=== PATIENT | female | born 1960 | race Caucasian/White ===

== ENCOUNTER 2018-08-11 21:28 | Inpatient (IN) | payer OTHER ==
[2018-08-11] MEDS ORDERED: Lidocaine 1% 20 ML MDV ONE (22:12)
[2018-08-11] MEDS ORDERED: Piperacillin/Tazobactam 3.375 GM VIAL ONE (22:14)
[2018-08-11] MEDS ORDERED: Lidocaine 1% PF 5 ML VIAL ONE (22:18)
[2018-08-11] MEDS ORDERED: Sodium Chloride 0.9% 100 ML ONE (22:19)
[2018-08-11 22:33] LABS: Eosinophils 2 % (0-10); Hemoglobin 12.1 g/dL (12.0-16.0); Lymphocytes 16 % (21-51); MDiff Complete? YES; Mean Corpuscular HGB CONC 33.3 g/dL (32.0-36.0); Mean Corpuscular Hemoglobin 29.7 pg (27.0-31.0); Mean Corpuscular Volume 89.1 fL (78.0-98.0); Mean Platelet Volume 7.7 fL (7.4-10.4); Monocytes 8 % (0-10); Neutrophil 70 % (42-75); Platelet Count 327 thou/uL (130-400); RBC Distribution Width 12.5 % (11.5-14.5); Reactive Lymphocytes 4 % (0-10); Red Blood Cell (RBC) Count 4.07 mill/uL (4.20-5.40)
[2018-08-11 22:34] LABS: Anion Gap 15 mmol/L (10-20); BUN (Urea Nitrogen) 16 mg/dL (9.8-20.1); Calc. Creatinine Clearance 0 mL/min (70-130); Calcium 9.7 mg/dL (7.8-10.44); Carbon Dioxide 21 mmol/L (22-29); Chloride 110 mmol/L (98-107); Estimated GFR-MDRD 65; Glucose 163 mg/dL (70-105); Potassium 3.6 mmol/L (3.5-5.1); Sodium 142 mmol/L (136-145)
[2018-08-11] MEDS ORDERED: Morphine 4 MG/ML VIAL ONE (22:44)
--- NOTE | 2018-08-11 23:11 | RAD ---
Exam: XR Forearm Rt 2 View STANDARD HISTORY: Right forearm pain after a dog bite. COMPARISON: None FINDINGS: There is subcutaneous edema about the forearm greater medially and dorsally. There are punctate focus of gas seen medial to the right elbow which could be related to wound from dogbite. No acute fracture, dislocation, or other acute osseous abnormality is identified. There is a corticated osseous density adjacent the ulnar styloid process which could be related to an accessory center of ossification versus a remote avulsion injury. IMPRESSION: 1. Subcutaneous edema about the forearm which could be related to cellulitis, but this would be a cli nical diagnosis. There is suggestion of a punctate focus of gas overlying the soft tissues medial to the right elbow which could be related to puncture wound from history of prior injury. Gas related to a gas-forming organism cannot be entirely excluded. 2. No acute osseous abnormality.
[2018-08-11] MEDS ORDERED: Adacel (T-DAP) 0.5 ML SYRINGE ONE (23:14)
[2018-08-12] MEDS ORDERED: diphenhydrAMINE 50 MG/ML VIAL ONE (00:21)
[2018-08-12] MEDS ORDERED: Piperacillin/Tazobactam 3.375 GM in Sodium Chloride 0.9% 100 ML IVPB SCH (06:00)
[2018-08-12] MEDS ORDERED: Acetaminophen 325 MG TAB PO PRN (10:59)
[2018-08-12] MEDS ORDERED: Ibuprofen 200 MG TAB PO PRN (11:00)
[2018-08-12] MEDS: Piperacillin/Tazobactam 3.375 GM in Sodium Chloride 0.9% 100 ML IVPB SCH ×3 (12:22→23:19)
[2018-08-12] MEDS: Vancomycin HCl 1 GM in Premix Bag 1 BAG IVPB SCH (17:12)
--- NOTE | 2018-08-12 18:02 | CON ---
DATE OF CONSULTATION: This is Howie Penaloza PA-C dictating a report for Faisal Appiah MD. HISTORY OF PRESENT ILLNESS: We were asked by [facility] hospitalist to see the patient. The patient this past Saturday was accidentally nipped in the right forearm elbow by her dog and did okay Saturday, she cleaned it out, but by , the arm had blown up and had quite a bit of erythema and edema. She saw her PCP, who put her on Augmentin. This did not work. She came in to the ER and had a lidocaine applied and did a small opening. She did receive a culture, but one cyst did not express much fluid and the patient was admitted to the hospital. Since being on vancomycin and Zosyn, the erythema, edema has gotten much better, but she still has quite a bit of pain and now has purulent discharge. The patient's pain has gotten better. No numbness or tingling in that right upper extremity and no fevers, chills, or any other symptoms. PAST MEDICAL HISTORY: Positive for pre-breast cancer, not proven and some rib fractures. Otherwise, she is fairly healthy. PAST SURGICAL HISTORY: Lumpectomy, hysterectomy, and bilateral Achilles repair. 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 No alcohol, nicotine, or drug products, whatsoever. ALLERGIES: SULFA. CURRENT MEDICATIONS: 1. Tamoxifen. 2. Fosamax. FAMILY HISTORY: For this visit is noncontributory. REVIEW OF SYSTEMS: Her only complaint right now is right elbow pain and swelling. Denies any chest pain or shortness of breath. No bowel or bladder issues. Rest of review of systems negative. PHYSICAL EXAMINATION: GENERAL: Well-nourished and well-developed female, alert, pleasant, no acute distress. Speech clear. Affect pleasant. Answers questions appropriately. Alert and oriented x3. HEENT: Normal exam. Face symmetric. Tongue midline. NECK: Supple. Trachea midline. EXTREMITIES: Upper extremities, left upper extremity IV in the antecubital space. Otherwise, moving left upper extremity well. Right upper extremity has some erythema, edema to her right forearm and elbow region that is definitely lessened by the ink outlined since she has gotten some IV antibiotics. She still has a little bit of purulent discharge seen. We were able to express a little bit of this on exam. The area is tender to palpation, but I felt no crepitus. Rest of upper extremity exam, strength, sensation, and pulses are equal. IMAGING STUDIES: X-rays showed some gas in the tissues. ASSESSMENT: Left forearm infection secondary to a dog bite. PLAN: I spoke with Dr. Appiah. Plan is to I and D washout at 8 o'clock this evening. She had a sandwich at 12 o'clock, so we have to wait 8 hours. I have explained the patient the nature of the surgery will be an incision and drainage of washout. She understands the surgery has been explained as does her mother and she is amenable to go forth with surgery. We will get her set up on the surgery schedule to get her consented. She is already on antibiotics. Her questions and concerns have been addressed. Job ID: [id number]
[2018-08-12] MEDS ORDERED: Fentanyl 100 MCG/2 ML VIAL ONE ×3 (19:51→22:14)
[2018-08-12] MEDS ORDERED: Sodium Chloride 0.9% 30 ML ONE ×2 (19:53→20:08)
[2018-08-12] MEDS ORDERED: Bupivacaine PF 0.5% 30 ML VIAL ONE (19:53)
[2018-08-12] MEDS ORDERED: Bacitracin Zinc Ointment 30 gm TUBE ONE (19:53)
[2018-08-12] MEDS ORDERED: Ondansetron PF 4 MG/2 ML Vial ONE (20:15)
[2018-08-12] MEDS ORDERED: Famotidine/PF 20 mg/2ml Vial ONE (20:15)
[2018-08-12] MEDS ORDERED: Scopolamine 1.5 mg/72 hour Patch ONE (20:17)
[2018-08-12] MEDS ORDERED: Promethazine HCl 25 MG/ML VIAL IM PRN (20:57)
[2018-08-12] MEDS ORDERED: Ondansetron HCl/PF 4 MG/2 ML Vial IVP PRN (20:57)
[2018-08-12] MEDS ORDERED: Promethazine HCl 25 MG/ML VIAL SLOW IVP PRN (20:57)
--- NOTE | 2018-08-12 23:09 | HP ---
CHIEF COMPLAINT: Right arm pain. HISTORY OF PRESENT ILLNESS: The patient is a very pleasant 57-year-old female with history of breast cancer, who presents to the hospital with complaints of right arm pain. The patient stated that her dog bit her on Saturday on her right forearm area. The patient stated that the dog was startled and according to her, her dog has been vaccinated. The patient stated that, however, a couple days later, she noticed some erythema around her right forearm, so she called her PCP, who called in Augmentin. The patient stated that she took 3-1/2 days of her antibiotics; however the erythema started to worsen, so she came into the ER for further evaluation. The patient denies any fevers or chills. She denies any nausea, vomiting, or diarrhea. The patient states that as I mentioned, the dog has been vaccinated and this is the 3rd time and the dog always does that when gets startled. PAST MEDICAL HISTORY: History of breast cancer, just it was precancerous. She is on tamoxifen. FAMILY HISTORY: Significant for breast cancer in mother and sister. SOCIAL HISTORY: She denies any alcohol use, drug use, or smoking history. She is a full code. Lives with her . PAST SURGICAL HISTORY: She has had a lumpectomy and she has had hysterectomy. REVIEW OF SYSTEMS: All negative except for the ones mentioned above in the HPI. ALLERGIES: SHE IS ALLERGIC TO SULFA. SHE GETS A RASH. MEDICATIONS: She is on tamoxifen and Excedrin at times. PHYSICAL EXAMINATION: VITAL SIGNS: Temperature of 99.1, heart rate of 119, 18, 148/88. GENERAL: She is awake, alert, and oriented x3. Does not appear in distress. CV: S1, S2 present. No murmurs, rubs, or gallops. LUNGS: Clear to auscultation. No rhonchi or wheezes noted. ABDOMEN: Soft and nontender. Bowel sounds are present x2. Extremities: Right arm, she does have some mild erythema to her right arm. She does have a puncture wound. Right radial pulse is palpable. She does have some mild erythema to her right arm. NEUROVASCULAR: No focal deficits noted. LABORATORY RESULTS: WBCs of 10.0, hemoglobin of 12.1, hematocrit of 36.5. Chemistry: Sodium of 142, potassium of 3.6, BUN of 16, creatinine 0.89. Lactic acid is 1.9. ASSESSMENT AND PLAN: The patient is a very pleasant 57-year-old female who presents to the hospital with complaints of right arm worsening swelling. 1. Cellulitis of the right arm secondary to dog bite. I will start the patient on Zosyn. She also received vancomycin in the ER. 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 I will hold off on the vancomycin. I will just start her on the Zosyn and continue to monitor. She did have a right forearm x-ray, which indicated subcutaneous edema on the forearm, also indicated some punctate focus of gas overlying the soft tissue medial to the right elbow. 2. History of breast cancer. I will continue her tamoxifen. 3. Deep venous thrombosis prophylaxis. We will put the patient on some sequential compression devices or Lovenox. Job ID: [id number]
[2018-08-12] MEDS: Morphine 4 MG/ML VIAL SLOW IVP PRN (23:11)
[2018-08-13] MEDS: Morphine 4 MG/ML VIAL SLOW IVP PRN (04:13)
[2018-08-13] MEDS: Vancomycin HCl 1 GM in Premix Bag 1 BAG IVPB SCH ×2 (06:10→18:00)
[2018-08-13] MEDS: Piperacillin/Tazobactam 3.375 GM in Sodium Chloride 0.9% 100 ML IVPB SCH ×3 (06:10→18:38)
[2018-08-13 07:45] LABS: #Lymphocytes 1.1 thou/uL (1.20-3.40); #Monocytes 0.1 thou/uL (0.11-0.59); %Basophils 0.3 % (0.0-1.0); %Eosinophils 0.1 % (0.0-10.0); %Lymphocytes 11.9 % (21.0-51.0); %Monocytes 1.4 % (0.0-10.0); %Neutrophils 86.3 % (42.0-75.0); Hemoglobin 11.7 g/dL (12.0-16.0); Mean Corpuscular HGB CONC 33.4 g/dL (32.0-36.0); Mean Corpuscular Hemoglobin 30.9 pg (27.0-31.0); Mean Corpuscular Volume 92.6 fL (78.0-98.0); Mean Platelet Volume 7.8 fL (7.4-10.4); Platelet Count 305 thou/uL (130-400); RBC Distribution Width 11.8 % (11.5-14.5); White Blood Cell (WBC) Count 9.3 thou/uL (4.8-10.8)
[2018-08-13 08:07] LABS: Anion Gap 15 mmol/L (10-20); BUN (Urea Nitrogen) 9 mg/dL (9.8-20.1); Calc. Creatinine Clearance 68 mL/min (70-130); Calcium 8.9 mg/dL (7.8-10.44); Carbon Dioxide 20 mmol/L (22-29); Chloride 107 mmol/L (98-107); Estimated GFR-MDRD 69; Glucose 150 mg/dL (70-105); Potassium 4.4 mmol/L (3.5-5.1); Sodium 138 mmol/L (136-145)
[2018-08-13] MEDS: HYDROcodone/Acetaminophen 7.5/325 mg Tablet PO PRN ×2 (08:32→13:13)
[2018-08-13] MEDS: Enoxaparin Sodium 40 MG/0.4 ML SYRINGE SC SCH (08:33)
--- NOTE | 2018-08-13 10:47 | OP ---
DATE OF PROCEDURE: 08/12/2018 PREOPERATIVE DIAGNOSIS: Left medial elbow abscess secondary to dog bite. POSTOPERATIVE DIAGNOSIS: Left medial elbow abscess secondary to dog bite. FINDINGS: Dog bite abscess with a finding of a 5 x 2 cm central fat, necrotic tissue with some purulence hard on the fat harboring itself under the fat. SPECIMEN SENT: Yes. BIOPSY: X2 of the lesion. PROCEDURE PERFORMED: 1. Incision and drainage of abscess. 2. Debridement of subcutaneous fat using the following techniques: a. Excisional technique. b. Instrumentation was tenotomy scissors, Adson and sugar tongs. COMPLICATIONS: There were no complications. ESTIMATED BLOOD LOSS: 15 mL. SPECIMEN SENT: Two cultures of the abscess cavity itself (fat and other material and then of the abscess fluid), 2 separate cultures. ANESTHESIA: General LMA technique by DB Santoro, [employer]. DESCRIPTION OF PROCEDURE: After successful general endotracheal, the limb was prepped and draped. Patient came to the operating room because of fluctuance, obvious subcutaneous purulence over almost an egg-shaped lesion. We exsanguinated the limb, inflated the tourniquet to 250 mmHg pressure and then made a curvilinear straight incision over the center of the mass. Since it was sewn on both sides, it was obviously emanating from the mass. The patient then had the incision carried through the skin and subcutaneous tissue, finished debridement as listed in description of procedure above and then had all infected fat removed, all denuded fat removed that could be visualized and then even packed this area once hemostasis was obtained with normal saline soaked gauze. The patient left the operating room with the wound open, fully debrided and have undergone a multiple Pulsavac sessions. Job ID: [id number]
--- NOTE | 2018-08-13 20:19 | PDOC.PN ---
- Subjective Encounter Start Date: 08/13/18 Encounter Start Time: 11:30 Subjective: pt up in bed feels much better today - Objective Resuscitation Status - Order Detail: 08/12/18 10:59 Resuscitation Status Routine Resuscitation Status: FULL: Full Resuscitation Vital Signs & Weight: Vital Signs (12 hours) Temp Pulse Resp BP BP Pulse Ox 08/13/18 17:00 97.9 F 89 16 108/71 92 L 08/13/18 16:00 97.9 F 95 16 108/71 94 L 08/13/18 13:18 90 16 94 L 08/13/18 12:13 98.2 F 106 H 82 H 106/70 91 L 08/13/18 08:30 92 L 08/13/18 08:29 98.1 F 90 16 103/65 92 L Weight Weight 130 lb 15.273 oz I&O: 08/12/18 08/13/18 08/14/18 06:59 06:59 06:59 Intake Total 982 320 8757 Balance 014 308 0959 Result Diagrams: 08/13/18 07:36 08/13/18 07:36 Phys Exam - Physical Examination Neck: no nodes, no JVD, supple, full ROM Respiratory: no wheezing, no rales, no rhonchi, wheezing present, clear to auscultation bilateral Cardiovascular: RRR, no significant murmur, no rub, gallop, irregular Gastrointestinal: soft, non-tender, no distention, positive bowel sounds Dx/Plan (1) Cellulitis Code(s): L03.90 - CELLULITIS, UNSPECIFIED Status: Acute (2) Dog bite Code(s): W54.0XXA - BITTEN BY DOG, INITIAL ENCOUNTER Status: Acute (3) Breast cancer Status: Acute - Plan will continue current abx, pt s/p I&D of right elbow -: cx pending. * . Review of Systems - Review of Systems Respiratory: negative: Cough, Dry, Shortness of Breath, Hemoptysis, SOB with Excertion, Pleuritic Pain, Sputum, Wheezing Cardiovascular: negative: chest pain, palpitations, orthopnea, paroxysmal nocturnal dyspnea, edema, light headedness, other Gastrointestinal: negative: Nausea, Vomiting, Abdominal Pain, Diarrhea, Constipation, Melena, Hematochezia, Other - Medications/Allergies Allergies/Adverse Reactions: Allergies Allergy/AdvReac Type Severity Reaction Status Date / Time Sulfa (Sulfonamide Allergy Verified 08/12/18 01:38 Antibiotics) Medications: Current Medications Acetaminophen (Tylenol) 650 mg PO Q4H PRN PRN Reason: Headache/Fever/Mild Pain (1-3) Hydrocodone Bitart/Acetaminophen ([place] 7.5/325) 1 tab PO Q4H PRN PRN Reason: Moderate Pain (4-6) Last Admin: 08/13/18 13:13 Dose: 1 tab Enoxaparin Sodium (Lovenox) 40 mg SC 0900 [facility] Last Admin: 08/13/18 08:33 Dose: 40 mg Piperacillin Sod/Tazobactam (Sod 3.375 gm/ Sodium Chloride) 100 mls @ 200 mls/ hr IVPB Q6HR [facility] Last Admin: 08/13/18 18:38 Dose: 100 mls Vancomycin HCl 1 gm/ Device 200 mls @ 200 mls/hr IVPB 0500,1700 [facility] Last Admin: 08/13/18 18:00 Dose: 200 mls Ibuprofen (Motrin) 200 mg PO Q8H PRN PRN Reason: Pain Last Admin: 08/12/18 12:22 Dose: 200 mg Miscellaneous Medication (Pharmacy To Dose) 1 each IVPB PRN PRN PRN Reason: Pharmacy to dose Morphine Sulfate (Morphine) 4 mg SLOW IVP Q3H PRN PRN Reason: Severe Pain (7-10) Last Admin: 08/13/18 04:13 Dose: 4 mg Sodium Chloride (Flush - Normal Saline) 10 ml IVF Q12HR [facility] Last Admin: 08/13/18 08:53 Dose: Not Given Sodium Chloride (Flush - Normal Saline) 10 ml IVF PRN PRN PRN Reason: Saline Flush Tamoxifen Citrate (Nolvadex) 20 mg PO DAILY [facility] Last Admin: 08/13/18 08:50 Dose: 20 mg
[2018-08-14] MEDS: Piperacillin/Tazobactam 3.375 GM in Sodium Chloride 0.9% 100 ML IVPB SCH ×3 (00:10→14:22)
[2018-08-14 04:30] LABS: Vancomycin, Trough 52.6 ug/mL
[2018-08-14] MEDS ORDERED: Vancomycin HCl 1 GM in Premix Bag 1 BAG IVPB SCH (04:45)
[2018-08-14] MEDS: Enoxaparin Sodium 40 MG/0.4 ML SYRINGE SC SCH (08:14)
[2018-08-14] MEDS ORDERED: Ondansetron PF 4 MG/2 ML Vial IVP PRN (08:50)
[2018-08-14] MEDS ORDERED: Ibuprofen 600 MG TAB PO SCH (09:00)
--- NOTE | 2018-08-14 11:34 | CON ---
DATE OF CONSULTATION: 08/13/2018 REASON FOR CONSULTATION: Dog bite. HISTORY OF PRESENT ILLNESS: A 57-year-old patient, who has a history of breast cancer, in remission after treatment on tamoxifen, who sustained a bite. The bite was provoked, it was her own dog, the dog is vaccinated and the dog is healthy right now. The bite was localized to the right upper extremity around the elbow and she developed worsening inflammatory changes, which failed Augmentin; therefore, she was admitted. She is feeling better after initiation of IV antimicrobial therapy. Dr. Appiah has completed a surgical debridement. The operative note was reviewed and there was debridement of subcutaneous fat, but no other major complications. No evidence of joint or bone involvement. She is feeling better. No headaches, visual symptoms, sore throat, odynophagia, or dysphagia. No cough or sputum production. No chest pain. No abdominal pain or diarrhea. No genitourinary symptoms. No neurological symptoms. PAST MEDICAL HISTORY: Breast cancer in remission, on tamoxifen. FAMILY HISTORY: Breast cancer in mother and sister. SOCIAL HISTORY: Does not drink. No alcoholic beverage use. No smoking. She is . PAST SURGICAL HISTORY: Lumpectomy and hysterectomy. ALLERGIES: SULFA DRUGS WITH RASH. CURRENT MEDICATIONS: 1. Tamoxifen. 2. [place]. 3. Lovenox. 4. Motrin. 5. Morphine. 6. Zosyn. 7. Vancomycin. PHYSICAL EXAMINATION: VITAL SIGNS: Essentially normal except for mild tachycardia. SKIN: Shows the wound site right around the oval area with a puncture wound from the bite surrounding erythema. I do not have photos from the surgical procedure. She has a peripheral IV access. No lymphadenopathy. HEENT: Noncontributory. NECK: Supple. No jugular vein distention. LUNGS: Clear to auscultation and percussion. HEART: S1 and S2, regular rate. No S3 or S4. ABDOMEN: Soft. Not distended or tender. No ascites. No bladder distention. EXTREMITIES: Lower extremities are normal. Cognitive functions intact. NEURO: Nonfocal. LABORATORY DATA: White cell count 10.0 and 9.3, hemoglobin normal, platelets normal, 86% neutrophils. Sodium 138, creatinine 0.85. Cultures are pending. Gram stain did not show any organisms. ASSESSMENT: Dog bite with inflammatory changes, mostly circumscribed to the soft tissues of the right upper extremity. The patient had surgical debridement. Await on cultures. The possible organisms include Pasteurella multocida, Staph aureus including MRSA, gram negatives, and streptococci. Continue current regimen for the time being. Hopefully, discharge on oral Augmentin depending on culture results. Job ID: [id number]
[2018-08-14 13:31] VITALS: BP 135/85; TEMP 99.3
[2018-08-14 15:11] LABS: Vancomycin, Trough 37.4 ug/mL
--- NOTE | 2018-08-15 18:39 | DIS ---
DATE OF ADMISSION: 08/12/2018 DATE OF DISCHARGE: 08/14/2018 DISCHARGE DIAGNOSES: 1. Cellulitis. 2. Dog bite. 3. History of breast cancer. HOSPITAL COURSE: The patient is a 57-year-old female, who initially presented to the hospital with significant erythema on her right forearm. Please refer to my H and P for further details. Apparently, the patient was bit by her dog. Initially, she cleansed it. However, the next day, she started to have more significant redness to her right arm, so she called in her PCP, who prescribed her some antibiotics. The patient stated that her arm continued to swell at this point. She came into the ER for further evaluation. She denied any fevers or any chills. The patient at this time was given IV antibiotics and also an x-ray was performed. The x-ray was a little concerning, especially since it had mentioned that the patient had some focus of gas overlying the soft tissue on the medial to the right elbow. At this time, Orthopedics was consulted and the patient underwent an I and D. Her cultures did grow back just a preliminary with gram-negative rods. The patient was also seen by Infectious Disease and I did consult with them before discharging the patient. The patient was discharged home. She was discharged home on Augmentin. I have specifically told the patient and the family that she will need to follow up with her primary especially since her cultures were preliminary and needed to be final to see if the antibiotics that we were giving her were sensitive to the organism that grew in the culture. She is going to follow up with her primary care. Also, while she was here, she did receive vancomycin and her trough was 58. At this time, a repeat one indicated 37. I also advised her about this. I will check her BMP next week on Saturday and also I have advised her to follow up with her primary in regard to this. PHYSICAL EXAMINATION: VITAL SIGNS: Temperature of 99.3, heart rate of 110, respiratory rate 18, oxygen saturation 97% on room air, and blood pressure 135/87. GENERAL: She is awake, alert, and oriented x3. Does not appear in distress. CARDIOVASCULAR: S1 and S2 present. No murmurs, rubs, or gallops. ABDOMEN: Soft and nontender. Bowel sounds are present x2. The patient is supposed to follow up with Orthopedic for closure of that wound and her number will be provided for her. MEDICATIONS: She is going to be on; 1. Augmentin one p.o. b.i.d. 2. Florastor 250 daily. 3. Alendronate 70 mg every 7 days. 4. Tamoxifen 20 mg daily. Job ID: [id number]
[2018-08-19] MEDS ORDERED: Alendronate Sodium 70 mg Tablet PO SCH (09:00)
== END 2018-08-14 17:29 | disposition home or self-care (01) | DRG 572 ==
LOC: SCSER 21:28 → 3SE 08-12 00:58 → T4-B 08-12 18:34
PROVIDERS: ADMIT Internal Medicine; ATTEND Internal Medicine
PROC: 0JBG0ZZ Excision of Right Lower Arm Subcutaneous Tissue and Fascia, Open Approach (ICD-10-PCS; principal; 2018-08-12)
DX: L02.413 Cutaneous abscess of right upper limb (principal); S51.051A Open bite, right elbow, initial encounter; L03.113 Cellulitis of right upper limb; B96.89 Other specified bacterial agents as the cause of diseases classified elsewhere; W54.0XXA Bitten by dog, initial encounter; Y92.9 Unspecified place or not applicable; Z85.3 Personal history of malignant neoplasm of breast; Z88.2 Allergy status to sulfonamides; Z90.710 Acquired absence of both cervix and uterus; Z79.899 Other long term (current) drug therapy
CPT/HCPCS: 10060; 36415; 80048; 80202; 83605; 85025; 87070; 87077; 87186; 87205; 90471; 90715; 96365; 96367; 96375; J1200; J1650; J2001; J2270; J2405; J2543; J3010; J3370; J3490; S0020; S0028

== ENCOUNTER 2018-08-20 15:20 | Day surgery (SDC) | payer OTHER ==
[2018-08-19 12:48] VITALS: BMI 27.1
[2018-08-20] MEDS ORDERED: Clindamycin/D5W 600 mg/50 ml Premix Bag ONE (16:19)
[2018-08-20 16:41] LABS: #Basophils 0.1 thou/uL (0.0-0.2); #Eosinphils 0.2 thou/uL (0.0-0.7); #Lymphocytes 1.6 thou/uL (1.20-3.40); #Monocytes 0.7 thou/uL (0.11-0.59); #Neutrophils 10.9 thou/uL (1.40-6.50); %Basophils 0.8 % (0.0-1.0); %Eosinophils 1.2 % (0.0-10.0); %Lymphocytes 11.7 % (21.0-51.0); %Monocytes 4.9 % (0.0-10.0); %Neutrophils 81.3 % (42.0-75.0); Hemoglobin 10.7 g/dL (12.0-16.0); Mean Corpuscular HGB CONC 33.4 g/dL (32.0-36.0); Mean Corpuscular Hemoglobin 30.1 pg (27.0-31.0); Mean Corpuscular Volume 90.1 fL (78.0-98.0); Mean Platelet Volume 7.1 fL (7.4-10.4); Platelet Count 421 thou/uL (130-400); RBC Distribution Width 11.9 % (11.5-14.5); Red Blood Cell (RBC) Count 3.55 mill/uL (4.20-5.40); White Blood Cell (WBC) Count 13.5 thou/uL (4.8-10.8)
[2018-08-20] MEDS ORDERED: Bupivacaine PF 0.5% 30 ML VIAL ONE ×2 (17:18→17:20)
[2018-08-20] MEDS ORDERED: Bacitracin Zinc Ointment 30 gm TUBE ONE (17:18)
[2018-08-20] MEDS ORDERED: Bupivacaine 0.25% HCL 30 ML VIAL ONE ×2 (17:18→19:49)
[2018-08-20] MEDS ORDERED: Sodium Chloride 0.9% 10 ML ONE (17:18)
[2018-08-20] MEDS ORDERED: Fentanyl 100 MCG/2 ML VIAL ONE ×2 (17:56→19:03)
[2018-08-20] MEDS ORDERED: Midazolam HCl 2 mg/2 ml Vial ONE (17:59)
--- NOTE | 2018-08-21 09:39 | OP ---
DATE OF PROCEDURE: 08/20/2018 PREOPERATIVE DIAGNOSIS: Right medial forearm open wound, 9 cm x 2 cm. POSTOPERATIVE DIAGNOSIS: Right medial forearm open wound, 9 cm x 2 cm with no evidence of infection. PROCEDURES PERFORMED: 1. Debridement of 9 cm x 2 cm wound, medial forearm using the following techniques: a. Instrumentation and curette, tenotomy scissors, [place] blade, 11 blade knife and hemostats. b. Irrigation with 1 L normal saline with antibiotics inside. c. Depth was down to, but not including fascia and including fat. d. No gross infection was found with excisional technique. 2. Two-layer closure, 9 cm x 2 cm wound, right medial forearm. ESTIMATED BLOOD LOSS: 5 mL. TOURNIQUET TIME: None. No infection seen. INDICATIONS: The patient presents for staged wound management now 6 days after open incision and drainage of abscess, right medial forearm, extra compartmental and in the fat, but not in the muscle, fascia or submuscular. It responded to antibiotics, but developed diarrhea approximately 24 hours ago, so we decided to stop the prior antibiotic and switch to a different family. DESCRIPTION OF PROCEDURE: After successful general endotracheal anesthesia, the limb was prepped and draped. We then did a time-out, injected with 20 mL of 0.5% Marcaine carolyne-incisional block. We inspected the wound, performed debridement using the techniques as listed above to include 1 mm circumferential epidermis and removal of subcutaneous fat. The would look denuded or did not look clearly clean. There was no gross infection found. We undermined the wound edges 2.5 cm and we checked in the subcutaneous and fat layer. We then finished irrigation, all the denuded and possible nonviable fat and subcutaneous tissue was removed. Then, we obtained hemostasis. We closed the wound with running 3-0 Monocryl subcutaneous closure and skin with 3-0 nylon interrupted simple pattern. Bulky dressing was applied with bacitracin under Adaptic and 4x4s and a Kerlix and Best wraps. The patient left the operating room without evidence of anesthetic or operative complication. Job ID: [id number]
== END 2018-08-20 20:50 | disposition home or self-care (01) ==
LOC: SDC 15:20
PROVIDERS: ATTEND Orthopaedic Surgery Hand Surgery
PROC: 0JBG0ZZ Excision of Right Lower Arm Subcutaneous Tissue and Fascia, Open Approach (ICD-10-PCS; principal; 2018-08-20)
DX: S51.801D Unspecified open wound of right forearm, subsequent encounter (principal); M81.0 Age-related osteoporosis without current pathological fracture; Z88.2 Allergy status to sulfonamides; Z79.899 Other long term (current) drug therapy; X58.XXXD Exposure to other specified factors, subsequent encounter
CPT/HCPCS: 36415; 80048; 85025; J2250; J3010; J3490; S0020

== ENCOUNTER 2022-07-16 10:41 | Outpatient (CLI) | payer OTHER | END 2022-07-16 10:42 | disposition home or self-care (01) | LOC: SCSRAD 10:41 | PROVIDERS: ATTEND Family Medicine | DX: M47.26 Other spondylosis with radiculopathy, lumbar region (principal); M25.562 Pain in left knee; M41.86 Other forms of scoliosis, lumbar region | CPT/HCPCS: 72100 ==